=== PATIENT | female | born 1960 | race Caucasian/White ===

== ENCOUNTER 2020-09-19 17:24 | Emergency (ER) | payer SELFPAY ==
[~2020-09-19] VITALS: Ht 160 cm; Wt 61.2 kg
--- NOTE | 2020-09-19 17:30 | NUR ---
PT W/C ASSISTED TO BED 8
[2020-09-19 17:36] VITALS: BP 132/76
--- NOTE | 2020-09-19 17:36 | NUR ---
POOL Fraser at pt bedside for further evaluation.
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
[2020-09-19] MEDS ORDERED: BACITRACIN OINT 500 UNITS/GM PKT TP ONE ×3 (17:50→17:51)
--- NOTE | 2020-09-19 17:54 | NUR ---
audio technician at pt bedside.
[2020-09-19] MEDS ORDERED: AMOX-1000 PO (17:55)
[2020-09-19] MEDS ORDERED: IBUP-1842 PO (17:55)
--- NOTE | 2020-09-19 18:38 | NUR ---
APPLIED DRESSING TO BILTERAL ARMS WITHOUT ANY ISSUES
[2020-09-19 18:51] VITALS: BP 132/76
--- NOTE | 2020-09-19 18:52 | NUR ---
Patient discharged with v/s stable. Written and verbal after care instructions given for animal bite after instructions and explained. Patient alert, oriented and verbalized understanding of instructions. Ambulatory with steady gait. All questions addressed prior to discharge. ID band removed. Patient advised to follow up with PMD. Rx of augmentin 875-125mg po bid for 7days, and ibuprofen 400mg po tid bid given. Patient educated on indication of medication including possible reaction and side effects. Opportunity to ask questions provided and answered.
[2020-09-20] MEDS ORDERED: DOXY-565 PO (10:48)
== END 2020-09-19 18:52 | disposition home or self-care (01) ==
LOC: MED 17:24
DX: S61.552A Open bite of left wrist, initial encounter (principal); Z79.899 Other long term (current) drug therapy; W55.01XA Bitten by cat, initial encounter; Y93.89 Activity, other specified; Y92.89 Other specified places as the place of occurrence of the external cause; Y99.8 Other external cause status
CPT/HCPCS: 73110; 90715; 99283